=== PATIENT | male | born 1965 | race Caucasian/White ===

== ENCOUNTER 2019-09-16 15:07 | Outpatient (CLI) | payer BC, SELFPAY ==
--- NOTE | 2019-09-16 15:17 | XR_ITS ---
WS: [id number] ABDOMEN 1 VIEW(S) HISTORY: HYDRONEPHROSIS COMPARISON: 01/07/2013 Normal bowel gas pattern. Increasing size and number of the stones in the RIGHT renal pelvis. Largest cluster measures 7 mm ove r the lower pole. There is an additional smaller calcification in the lower pole. 2 adjacent or a sin gle lobulated stone measuring 7 mm in the mid RIGHT abdomen may be within the ureter. Tiny calcificat ions over the LEFT kidney. There are new calcifications in the pelvis. Some of these calcifications c ould potentially be within the distal RIGHT ureter. Sclerotic foci are stable in the RIGHT sacrum and LEFT ilium. Fusion hardware in the lower lumbar spi ne. XR/XR KUB [id number] IMPRESSION: 1. Bilateral nephrolithiasis. Greatest on the RIGHT kidney. 2. Potential lobulated calcification or 2 adjacent calcifications in the mid R IGHT ureter. 3. Additional new calcifications in the RIGHT hemipelvis. These could potentia lly be calcifications in the distal RIGHT ureter.
== END 2019-09-16 15:08 | disposition home or self-care (01) ==
LOC: RAD 15:15
PROVIDERS: PCP Family Medicine; Visit Provider Urology
DX: N20.0 Calculus of kidney (principal); N28.89 Other specified disorders of kidney and ureter
CPT/HCPCS: 74018; 81001

== ENCOUNTER 2019-09-17 08:41 | Outpatient (CLI) | payer BC, SELFPAY ==
--- NOTE | 2019-09-17 09:46 | CT_ITS ---
WS: [id number] CT ABDOMEN PELVIS TECHNIQUE: Noncontrast CT of the abdomen and pelvis with coronal and sagittal reformatted images. CLINICAL INFORMATION: kidney stone COMPARISON: CT April 08, 2011 DLP: 1097.[address] scans at [facility] use at least one of these dose optimization techniques: automat ed exposure control; mA and/or kV adjustment per patient size (includes targeted exams where dose is matched to clinical indication); or iterative reconstruction. FINDINGS: Noncontrast liver is normal. Cholelithiasis. Noncontrast spleen is normal. Small splenule. Normal GE junction. Lung bases are well aerated. Noncontrast pancreas is unremarkable. Adrenal glands are henri l. Infrarenal abdominal aortic aneurysm measuring 3.2 x 2.2 CM. Adrenal glands are normal. Bilateral renal parenchymal calculi. No hydronephrosis left kidney. Left u reter is decompressed. Mild right hydronephrosis. Mild right ureterectasis. Obstructing right mid to distal ureteral calculi measuring 3.9 mm and 4 mm. Additional obstructing calculus at the UPJ the padmini dder orifice measuring 5.3 mm. Left renal cortical cyst measuring 3.1 CM. No abdominal lymphadenopathy. Pelvic phleboliths. Prostate calcifications. Postoperative changes lower lumbar spine with interbody posterior element fusion L4- L5 and L5-S1. Sclerotic lesion right ilium unchanged. Stable abdominal wall varicosities. CT/CT kidney stone [id number] IMPRESSION: 1. Obstructing right UPJ calculus measuring 5.3 mm with mild right hydronephro sis and ureterectasis. 2. Two Additional mid obstructing right ureteral calculi measuring 3.9 and 4.0 mm at the pelvic brim. 3. Left ureter is decompressed. 4. Cholelithiasis. This can be followed up with ultrasound. 5. Left renal cyst measuring 3.1 cm increased in size since 2010 where it toney ured proximal 1.5 CM. This could be also further evaluated ultrasound. 6. Infrarenal abdominal aortic aneurysm measuring 3.2 x 2.2 cm AP by transvers e.
== END 2019-09-17 08:42 | disposition home or self-care (01) ==
LOC: RADWPI 08:46
PROVIDERS: PCP Family Medicine; Visit Provider Urology
DX: N20.0 Calculus of kidney (principal); R31.0 Gross hematuria; N20.1 Calculus of ureter; N13.30 Unspecified hydronephrosis; N13.4 Hydroureter; K80.20 Calculus of gallbladder without cholecystitis without obstruction; Q61.01 Congenital single renal cyst; I71.4 Abdominal aortic aneurysm, without rupture
CPT/HCPCS: 74176

== ENCOUNTER 2019-10-07 08:28 | Outpatient (CLI) | payer BC, SELFPAY ==
--- NOTE | 2019-10-07 08:30 | XRR_ITS ---
PROCEDURE INFORMATION: Exam: XR Abdomen, 1 View Exam date and time: 10/07/2019 9:01 AM Age: 54 years old Clinical indication: Condition or disease; Kidney or ureter condition; Calculus (stone) in kidney; Prior surgery; Surgery type: Back; Additional info: Stone f/u TECHNIQUE: Imaging protocol: XR of the abdomen. Views: Frontal supine view of the abdomen. 1 View. COMPARISON: 1. CR XR KUB [id number] 09/16/2019 3:[address] kidney stone [id number] 09/17/2019 9:50:35 AM FINDINGS: Gastrointestinal tract: No dilated gas-filled loops of bowel. Organs: There are 3 right renal calculi, measuring up to 7 mm in size not accounting for magnification. There is at least 2 punctate left renal calculi. No radiopaque ureteral calculus is identified at this time. Vasculature: There are multiple phleboliths in the pelvis. Bones/joints: Unchanged sclerotic foci in the lateral left iliac wing and in the posteromedial right ilium. Prior fusion surgery at L4-L5 and L5-S1. XR/XR KUB [id number] IMPRESSION: 1. Bilateral nephrolithiasis, with the stone burden being more prominent on the right. 2. No ureteral calculus visualized.
== END 2019-10-07 08:29 | disposition home or self-care (01) ==
LOC: RAD 08:29
PROVIDERS: PCP Family Medicine; Visit Provider Urology
DX: N20.0 Calculus of kidney (principal)
CPT/HCPCS: 74018; 81001; 82365

== ENCOUNTER 2020-01-12 08:18 | Outpatient (CLI) | payer BC, SELFPAY ==
--- NOTE | 2020-01-12 08:30 | XRR_ITS ---
PROCEDURE INFORMATION: Exam: XR Abdomen, 1 View Exam date and time: 01/12/2020 8:38 AM Age: 54 years old Clinical indication: Condition or disease; Other: Stones TECHNIQUE: Imaging protocol: XR of the abdomen. Views: Frontal supine view of the abdomen. 1 View. COMPARISON: CR XR KUB [id number] 10/07/2019 8:56 AM FINDINGS: Gastrointestinal tract: No dilated bowel loops identified to suggest obstruction. Bones/joints: Mild degenerative changes of the lumbar spine. Postsurgical changes of the lower lumbar spine as previously. Sclerotic foci in the right ilium medially and left iliac wing as previously. Other findings: There are two stones overlying the right kidney lower pole, larger measuring 0.7 cm in maximum dimension. Previously seen third stone in this region is not identified on this study and may have passed or completely overlap one of the other stones. A few tiny stones are scattered in the left kidney, similar to prior study. XR/XR KUB [id number] IMPRESSION: 1. There are two stones overlying the right kidney lower pole, larger measuring 0.7 cm in maximum dimension. Previously seen third stone in this region is not identified on this study and may have passed or completely overlap one of the other stones. 2. A few tiny stones are scattered in the left kidney, similar to prior study.
== END 2020-01-12 08:19 | disposition home or self-care (01) ==
LOC: RAD 08:21
PROVIDERS: PCP Family Medicine; Visit Provider Urology
DX: N20.0 Calculus of kidney (principal)
CPT/HCPCS: 74018; 81001

== ENCOUNTER 2020-10-11 07:54 | Outpatient (CLI) | payer BC, SELFPAY ==
--- NOTE | 2020-10-11 08:15 | XR_ITS ---
WS: [id number] Exam: XR KUB [id number] Date/Time of Exam: 10/11/2020 8:01 AM Reason For Exam: N20.0 - Calculus of kidney No bowel obstruction or free air. Moderate amount of stool noted in the colon. Several tiny ill-defin ed calcifications superimpose both kidneys suggesting renal stones. There are postoperative changes o f the lower lumbar spine. Postoperative changes of the left ilium and right sacrum noted and may be r elated to previous bone grafting. XR/XR KUB [id number] IMPRESSION: 1. Several ill-defined tiny calcifications superimposing both kidneys suggestin g renal lithiasis. 2. Constipation. No acute abdominal process.
== END 2020-10-11 07:55 | disposition home or self-care (01) ==
LOC: RAD 07:57
PROVIDERS: PCP Family Medicine; Visit Provider Urology
DX: N20.0 Calculus of kidney (principal); K59.00 Constipation, unspecified; R31.0 Gross hematuria; N20.1 Calculus of ureter
CPT/HCPCS: 74018; 81003; 82365; 88300

== ENCOUNTER 2021-11-22 07:56 | Outpatient (CLI) | payer BC, SELFPAY ==
--- NOTE | 2021-11-22 08:30 | XR_ITS ---
WS: [id number] KUB, AP view, 11/22/2021 Clinical Data: Bilateral Kidney Stones Comparison: KUB, 10/11/2020. Findings: No abnormal intraabdominal masses are seen. There is no dilatated small bowel or evidence of obstruct ion. There are bilateral calcifications overlying the kidneys. The right kidney is partially obscured by f ecal material and bowel gas. The patient's had an orthopedic fusion of L4 and L5 with artificial disc spaces at L4-L5 and L5-S1. There are calcifications overlying the right sacrum and left ilium unchan ged. There are prosthetic calcifications. XR/XR KUB [id number] Impression: 1. Unchanged bilateral renal calcifications. 2. Postoperative changes of the lower lumbar spine, right sacrum and left ilium .
[2021-11-22 09:14] LABS: PSA Screen - Urology 0.99 ng/mL (0-4)
== END 2021-11-22 07:57 | disposition home or self-care (01) ==
PROVIDERS: PCP Family Medicine; Visit Provider Urology
DX: Z12.5 Encounter for screening for malignant neoplasm of prostate (principal); N20.0 Calculus of kidney
CPT/HCPCS: 36415; 74018; 81003; G0103